=== PATIENT | female | born 1980 | race Caucasian/White ===

== ENCOUNTER 2016-11-05 17:25 | Emergency (ER) ==
[2016-11-05] MEDS ORDERED: NS 1,000 ML IV ONE (18:00)
--- NOTE | 2016-11-05 18:30 | PROVIDER DOCUMENTATION ---
HPI-General Adult - General Chief Complaint: Female Stated Complaint: POST OP COMPLAINT Time Seen by Provider: 11/05/16 17:58 Source: patient Allergies/Adverse Reactions: Patient Allergies Allergy/AdvReac Type Severity Reaction Status Date / Time No Known Allergies Allergy Verified 10/25/16 05:35 Home Medications: Fluoxetine [Prozac] 40 mg PO DAILY 09/10/15 Propranolol HCl 10 mg PO TID 10/14/16 - History of Present Illness -Gen Adult Nature of Presenting Problems: Pt. is 36 yof that presents with c/o vaginal bleeding and pain that began abruptly today. Pt. reports that 10 days ago she had a hysterectomy removing everything but her ovaries (done by Dr. Small) and that she had minimal bleeding before today. Pt. reports today it became much worse and was told if it began to bleed this bad to go to an ED. Pt. denies any other symptoms at this time. Location of Pain/Injury: reports: genitalia. denies: head, face, mouth, neck, chest, upper extremity, hand(s), abdomen, back, pelvis, lower extremity, feet, upper body, lower body, generalized Pain Radiation: reports: no radiation Quality of Pain: reports: aching. denies: burning, cramping, dull, fullness, indigestion, pressure, sharp, stabbing, tearing, throbbing, tightness Severity: reports: moderate. denies: mild, severe Onset/Duration: reports: abrupt, 1-3 hours ago Timing: reports: still present, constant. denies: improving, gone now, resolved prior to arrival, intermittent, changing over time, getting worse Context/Activities at Onset: reports: none. denies: recent emotional stress, recent physical stress, recent trauma history, possible bad food, cold exposure , out of country travel Modifying Factors: improves with: nothing Associated Symptoms: reports: genitourinary problems. denies: anxiety, arm pain , back/neck pain, chest pain, constipation, cough, diaphoresis, diarrhea, dizziness, EENT symptoms, fatigue, fever/chills, headaches, heartburn, joint pain, loss of appetite, malaise, muscle aches, sinus congestion/drainage, nausea , rash, seizure, shortness of breath, sensory/motor loss, pain with inspiration , swelling/mass in abdomen, syncope, vomiting, weakness, trouble walking Similar Symptoms Previously?: Yes Recently seen or treated by another doctor?: No Review of Systems - Adult - REVIEW OF SYSTEMS - ADULT Constitutional: reports: see HPI. denies: chills, fever, fatique Eyes: reports: see HPI. denies: discharge, blurred vision, double vision Ears, Nose, Mouth & Throat: reports: see HPI. denies: ear pain, nose pain, loose teeth, throat swelling Cardiovascular: reports: see HPI. denies: chest pain, irregular heart rate, orthopnea, syncope Respiratory: reports: see HPI. denies: chronic cough, cough, pleurisy, shortness of breath, wheezing Gastrointestinal: reports: see HPI. denies: abdominal pain, diarrhea, nausea, vomiting Genitourinary: reports: see HPI. denies: dysuria, discharge, flank pain, hesitency, urgency Musculoskeletal: reports: see HPI. denies: bone pain, back pain, joint pain, muscle aches, neck pain Integumentary: reports: see HPI. denies: hives, itching, rash, skin thickening Neurological: reports: see HPI. denies: ataxia, headache/migraines, numbness, seizure, tremors Psychiatric: reports: see HPI. denies: anxiety, depression, emotional problems , insomnia, panic attacks, suicidal thoughts Endocrine: reports: see HPI. denies: cold intolerance, increased hunger, polyuria Hematologic/Lymphatic: reports: see HPI. denies: blood clots, lymphedema, swollen lymph nodes, transfusions Past History - Adult - PAST MEDICAL HISTORY-ADULT Review of Records: reports: Old Records Reviewed, Nursing Assessment Review, Medications Reviewed, Social history reviewed & non-contributory. Other Conditions: reports: MRSA - PRIOR SURGERIES/PROCEDURES Surgical/Procedure History: reports: , tonsillectomy - IMMUNIZATION STATUS Childhood Immunizations: See Nurse Assessment Flu Vaccine: See Nurse Assessment Physical Exam-General - PHYSICAL EXAM-ADULT Initial Vital Signs Reviewed: Yes - CONSTITUTIONAL General Appearance: alert, mild distress, obese. negative: thin, anxious, lethargic, slow to respond, obtunded, combative - EYES Eyes: PERRL/EOMI, pink conjunctivae. negative: conjuctival exudate, photophobia , subconjunctival hemorrhage - HEAD, EARS, NOSE, MOUTH & THROAT HENMT: normocephalic/atraumatic, moist mucous membranes. negative: angioedema, pharyngeal erythema, frontal tenderness, maxillary tenderness - NECK Neck: non-tender, full range of motion, supple, normal inspection. negative: lymphadenopathy, trachial deviation, thyromegaly - RESPIRATORY Respiratory: lungs clear, normal breath sounds. negative: crackles, rales, rhonchi, stridor, wheezing - CARDIOVASCULAR Cardiovascular: normal peripheral pulses, regular rate, rhythm, no edema, no JVD , no murmur. negative: extra beats, friction rub, irregularly irregular - CHEST (BREASTS) Chest/Breast: deferred - GASTROINTESTINAL (ABDOMEN) Abdominal Exam: normal bowel sounds, non tender, soft. negative: distended, guarding, rigid, rebound, tenderness, hernia, mass - GENITOURINARY Female Genitalia/Pelvic Exam: no masses, blood. negative: active bleeding, discharge, herpes-like ulcerations, lesions, mass Rectal Exam: deferred Hemoccult Exam: deferred - LYMPHATIC Lymphatic: no adenopathy. negative: axilla node tender, cervical node tenderness - MUSCULOSKELETAL Back Exam: normal inspection, no CVA tenderness, no vertebral tenderness. negative: ecchymosis, muscle spasm, vertebral tenderness Extremity: normal range of motion, non-tender, normal gait, normal inspection. negative: deformity, erythema, inflammation, swelling, tenderness Peripheral Pulses: radial (R): 2+, radial (L): 2+ - SKIN Integumentary: normal color, normal turgor, warm/dry. negative: ecchymosis, erythema, jaundice, mottled, pallor, petechiae, purpura, rash, swelling, tenderness - NEUROLOGIC Neurologic: grossly normal, no motor/sensory deficits. negative: aphasia, facial droop, focal weakness, motor weakness, sensory deficit - PSYCHIATRIC Psych/Mental Status: normal mood/affect, normal thought content, normal thought process, oriented x 3. negative: anxious, paranoid, tearful Progress - PLAN OF CARE/RESULTS Progress/Plan/Lab Results: Discussed results and plan of care with patient. Patient agrees with plan and verbalizes understanding. Vital Signs Temp Pulse Resp BP Pulse Ox 11/05/16 17:43 98.1 F 109 H 20 127/92 100 No Known Allergies Allergy (Verified 10/25/16 05:35) Fluoxetine [Prozac] 40 mg PO DAILY 09/10/15 Propranolol HCl 10 mg PO TID 10/14/16 Laboratory 11/05/16 11/05/16 11/05/16 18:10 18:10 18:10 WBC RBC Hgb Hct MCV MCH MCHC RDW Std Deviation Plt Count MPV Immature Gran % (Auto) Neut % (Auto) Lymph % (Auto) [place] % (Auto) Eos % (Auto) Baso % (Auto) Immature Gran # (Auto) Neut # (Auto) Lymph # (Auto) [place] # (Auto) Eos # (Auto) Baso # (Auto) PT 10.0 INR 0.94 PTT (Actin FS) 29.3 Sodium 139 Potassium 3.9 Chloride 100 Carbon Dioxide 26 Anion Gap 13 BUN 14 Creatinine 0.8 Estimated GFR/1.73 m2 > 60 BUN/Creatinine Ratio 18 Glucose 119 H Calculated Osmolality 279 Calcium 9.1 Total Bilirubin 0.40 AST 55 H ALT 139 H Alkaline Phosphatase 138 H Total Protein 7.2 Albumin 4.0 Globulin 3.2 Albumin/Globulin Ratio 1.3 Blood Type A POSITIVE Antibody Screen NEGATIVE 11/05/16 18:10 WBC 12.42 H RBC 4.19 L Hgb 12.2 Hct 35.5 L MCV 84.7 MCH 29.1 MCHC 34.4 RDW Std Deviation 11.5 Plt Count 292 MPV 11.5 H Immature Gran % (Auto) 0.2 Neut % (Auto) 78.3 H Lymph % (Auto) 14.2 L [place] % (Auto) 5.6 Eos % (Auto) 1.5 Baso % (Auto) 0.2 Immature Gran # (Auto) 0.02 Neut # (Auto) 9.72 H Lymph # (Auto) 1.76 [place] # (Auto) 0.70 H Eos # (Auto) 0.19 Baso # (Auto) 0.03 PT INR PTT (Actin FS) Sodium Potassium Chloride Carbon Dioxide Anion Gap BUN Creatinine Estimated GFR/1.73 m2 BUN/Creatinine Ratio Glucose Calculated Osmolality Calcium Total Bilirubin AST ALT Alkaline Phosphatase Total Protein Albumin Globulin Albumin/Globulin Ratio Blood Type Antibody Screen Orders Category Date Time Status Pelvic set up DIRECTED Care 11/05/16 18:13 Active Saline Loc NOW Care 11/05/16 17:59 Active CBC WITH ELECTRONIC DIFF [HEME] Stat Lab 11/05/16 18:10 Completed COMPREHENSIVE METABOLIC PANEL [CHEM] Stat Lab 11/05/16 18:10 Completed PROTIME WITH INR [COAG] Stat Lab 11/05/16 18:10 Completed PTT [COAG] Stat Lab 11/05/16 18:10 Completed TYPE & SCREEN [BBK] Stat Lab 11/05/16 18:10 Completed 0.9% Sodium Chloride Inj [Ns] 1,000 ml Med 11/05/16 18:00 Discontinued IV 999 mls/hr Laboratory Tests 11/05/16 11/05/16 11/05/16 18:10 18:10 18:10 WBC 12.42 H RBC 4.19 L Hgb 12.2 Hct 35.5 L MCV 84.7 MCH 29.1 MCHC 34.4 RDW Std Deviation 11.5 Plt Count 292 MPV 11.5 H Immature Gran % (Auto) 0.2 Neut % (Auto) 78.3 H Lymph % (Auto) 14.2 L [place] % (Auto) 5.6 Eos % (Auto) 1.5 Baso % (Auto) 0.2 Immature Gran # (Auto) 0.02 Neut # (Auto) 9.72 H Lymph # (Auto) 1.76 [place] # (Auto) 0.70 H Eos # (Auto) 0.19 Baso # (Auto) 0.03 PT 10.0 INR 0.94 PTT (Actin FS) 29.3 Sodium 139 Potassium 3.9 Chloride 100 Carbon Dioxide 26 Anion Gap 13 BUN 14 Creatinine 0.8 Estimated GFR/1.73 m2 > 60 BUN/Creatinine Ratio 18 Glucose 119 H Calculated Osmolality 279 Calcium 9.1 Total Bilirubin 0.40 AST 55 H ALT 139 H Alkaline Phosphatase 138 H Total Protein 7.2 Albumin 4.0 Globulin 3.2 Albumin/Globulin Ratio 1.3 Blood Type Antibody Screen 11/05/16 18:10 WBC RBC Hgb Hct MCV MCH MCHC RDW Std Deviation Plt Count MPV Immature Gran % (Auto) Neut % (Auto) Lymph % (Auto) [place] % (Auto) Eos % (Auto) Baso % (Auto) Immature Gran # (Auto) Neut # (Auto) Lymph # (Auto) [place] # (Auto) Eos # (Auto) Baso # (Auto) PT INR PTT (Act[place] FS) Sodium Potassium Chloride Carbon Dioxide Anion Gap BUN Creatinine Estimated GFR/1.73 m2 BUN/Creatinine Ratio Glucose Calculated Osmolality Calcium Total Bilirubin AST ALT Alkaline Phosphatase Total Protein Albumin Globulin Albumin/Globulin Ratio Blood Type A POSITIVE Antibody Screen NEGATIVE - CONSULTS/PCP/HOSPITALIST Notification #1 *Consult/PCP/Hospitalist*: Dr. Guerra Time Discussed: 19:24 Reason/Comments: Consult Consult Disposition: other (Will call Dr. Small and let me know.) #2 Consult: Dr. Guerra Time Discussed: 19:29 Reason/Comments: Consult Consult Disposition: F/U in office (Dr. Small wants pt. to rest tonight and stay off feet and he will see her in office at 0830 in the morning.) Departure - Departure Time of Disposition Order: 19:30 DIAGNOSIS: S/P robot-assisted surgical procedure, Pelvic pain, Vaginal bleeding Disposition: HOME Certified Medical Emergency: Emergent Condition: Stable Additional Instructions: Follow up with primary care physician Follow up with Dr. Small in his office at 0830 tomorrow Friday11/06/2016. Return to ED for any concerns or worsening of symptoms ED Follow Up Instructions: You have been treated by a care provider in the Emergency Department. These instructions are being provided to you so you can have an understanding of how to care for yourself upon discharge. Upon discharge from the Emergency Department, you are responsible for making arrangements for follow-up care by a physician of your choice. Take all prescribed medications as directed. Return to the Emergency Department immediately for any new or worsening symptoms. You may call the Physician Referral phone number at [phone] to obtain a list of Physicians who are taking new patients. Prescriptions: Hydrocodone/APAP 7.5 mg/325 mg [[place]-7.5] 1 each PO Q6H PRN PRN #5 tablet PRN Reason: Pain Referrals: [Primary Care Provider] - Dada Small MD [STAFF PHYSICIAN] - Attestation - Physician/ Mid-level Attestation Patient care was provided by Mid-level provider (ELECTRON BEAM OPERATOR/PA):: Yes Mid-level provider:: Billy Pham Mid-level documentation review:: The Mid-level provider documentation, treatment plan and medical decision making was reviewed by the physician who agrees with all treatment and medical decision making by the MLP. The physician spent face to face time with patient:: Yes
[2016-11-05 18:32] LABS: MANUAL DIFF NEEDED? NO
[2016-11-05 18:35] LABS: BASO% 0.2 % (0.0-0.8); EOS# 0.19 X1000 (0.0-0.7); EOS% 1.5 % (0.0-10.0); HEMATOCRIT 35.5 % (37.0-47.0); HEMOGLOBIN 12.2 g/dL (12.0-16.0); IMM GRAN# 0.02 X1000 (0.0-0.04); IMM GRAN% 0.2 % (0.0-0.5); LYMPH# 1.76 X1000 (1.2-3.4); LYMPH% 14.2 % (20.5-51.1); MCH 29.1 PG (27-31); MCHC 34.4 g/dL (33-37); MCV 84.7 FL (81-99); MONO% 5.6 % (1.7-9.3); MPV 11.5 FL (7.4-10.4); NEUT% 78.3 % (42.2-75.2); PLT 292 X1000 (130-400); RBC 4.19 XMIL (4.2-5.4)
[2016-11-05 18:51] LABS: INR 0.94; PTT 29.3 Seconds (22.0-36.0)
[2016-11-05 19:04] LABS: AGAP 13; ALKALINE PHOSPHATASE 138 U/L (32-104); BUN 14 mg/dL (8-22); CALCIUM 9.1 mg/dL (8.8-10.2); CHLORIDE 100 mmol/L (98-107); COSMO 279; GOT 55 U/L (10-30); GPT 139 U/L (10-36); POTASSIUM 3.9 mmol/L (3.5-5.1); SODIUM 139 mmol/L (136-145); TCO2 26 mmol/L (25-35); TOTAL PROTEIN 7.2 g/dL (6.3-8.3)
[2016-11-05] MEDS ORDERED: NORCO-7.5 PO ONE (19:41)
[2016-11-05 20:03] VITALS: BP 118/88
== END 2016-11-05 20:03 | disposition home or self-care (01) ==
LOC: ED 17:25
DX: N93.9 Abnormal uterine and vaginal bleeding, unspecified (principal); R10.2 Pelvic and perineal pain; E66.9 Obesity, unspecified; Z79.899 Other long term (current) drug therapy; Z98.890 Other specified postprocedural states; Z86.14 Personal history of Methicillin resistant Staphylococcus aureus infection
CPT/HCPCS: 80053; 85025; 85610; 85730; 86850; 86900; 86901; 99283; J7030